=== PATIENT | female | born 1930 | race Caucasian/White ===

== ENCOUNTER 2019-01-08 09:04 | Emergency (ER) | payer MEDICARE, BC ==
[~2019-01-08] VITALS: Ht 167.6 cm; Wt 68.0 kg
--- NOTE | 2019-01-08 09:14 | ED General ---
General Chief Complaint: Altered Mental Status Stated Complaint: SYNCOPAL EPISODE History of Present Illness Date Seen by Provider: Jan 08, 2019 Time Seen by Provider: 09:14 Initial Comments Patient presenting to the emergency department for evaluation of sudden onset altered mental status with confusion and difficulty speaking. She is at an independent living facility and was seen normal breakfast interacting speaking normally. Patient then went back to her room and hadn't several large bowel movements and she tried standing up and felt confused and could not get up so she pressed her emergency call button. The aides saw her slumped over sitting on the toilet and she was very glassy eyed and was not interacting so EMS was called. She was last seen normal at 8 AM at the breakfast table. Patient on arrival is quite confused and slow speech but is still able to respond. She was sent to CT emergently given she is technically in the TPA window for stroke. After getting back from the CT scanner patient was back at her baseline speaking normally and had an NIH stroke scale equal to 0. I asked the nurse Shanna whether she was back to her baseline and she said yes she is 100% back to her baseline. Patient said she felt fine and did not want me to call her DURABLE POWER OF REMOTE SENSING ADVISOR who is her daughter Maddy but I told her that we have to and she started crying. She says she does not want to bother her daughter. I told her that it is necessary. Allergies and Home Medications Home Medications Amiodarone HCl 200 Mg Tablet, 100 MG PO DAILY, (Reported) Aspirin 81 Mg Tab.chew, 81 MG PO DAILY, (Reported) Carvedilol 3.125 Mg Tablet, BID, (Reported) Cephalexin 500 Mg Capsule, 500 MG PO BID Prescribed by: MARTHA BAKER on 01/08/19 1043 Furosemide 20 Mg Tablet, 20 MG PO DAILY, (Reported) Patient Home Medication List Home Medication List Reviewed: Yes Review of Systems Review of Systems Constitutional: no symptoms reported EENTM: no symptoms reported Respiratory: no symptoms reported Cardiovascular: no symptoms reported Gastrointestinal: no symptoms reported Genitourinary: no symptoms reported Musculoskeletal: no symptoms reported Skin: no symptoms reported Psychiatric/Neurological: Other All Other Systems Reviewed Negative Unless Noted: Yes Physical Exam Vital Signs Vital Signs - First Documented 01/08/19 09:08 Temp 95.5 Pulse 87 Resp 16 B/P (MAP) 161/98 (119) Pulse Ox 97 O2 Delivery Room Air Capillary Refill : Height, Weight, BMI Height: '" Weight: lbs. oz. kg; BMI Method: General Appearance: No Apparent Distress, Anxious Eyes: Bilateral Eye Normal Inspection HEENT: PERRL/EOMI Neck: Full Range of Motion Respiratory: Lungs Clear Cardiovascular: No Edema, Normal Peripheral Pulses, Irregularly Irregular Back: Normal Inspection Extremity: Normal Capillary Refill Neurologic/Psychiatric: Alert, Oriented x3, No Motor/Sensory Deficits, utility operator yarn II- XII Norm as Tested Skin: Normal Color, Warm/Dry Progress/Results/Core Measures Suspected Sepsis SIRS Temperature: Pulse: Respiratory Rate: Laboratory Tests 01/08/19 09:15: White Blood Count 7.4 Blood Pressure / Mean: Laboratory Tests 01/08/19 09:15: Creatinine 1.28, INR Comment 0.9, Platelet Count 163, Total Bilirubin 0.8 Results/Orders Lab Results Laboratory Tests Test 01/08/19 09:15 01/08/19 09:50 01/08/19 09:58 Range/Units White Blood Count 7.4 4.3-11.0 10^3/uL Red Blood Count 4.58 4.35-5.85 10^6/uL Hemoglobin 14.7 11.5-16.0 G/DL Hematocrit 43 35-52 % Mean Corpuscular Volume 94 80-99 FL Mean Corpuscular Hemoglobin 32 25-34 PG Mean Corpuscular Hemoglobin Concent 34 32-36 G/DL Red Cell Distribution Width 13.2 10.0-14.5 % Platelet Count 163 130-400 10^3/uL Mean Platelet Volume 11.0 H 7.4-10.4 FL Neutrophils (%) (Auto) 67 42-75 % Lymphocytes (%) (Auto) 18 12-44 % Monocytes (%) (Auto) 10 0-12 % Eosinophils (%) (Auto) 4 0-10 % Basophils (%) (Auto) 1 0-10 % Neutrophils # (Auto) 5.0 1.8-7.8 X 10^3 Lymphocytes # (Auto) 1.3 1.0-4.0 X 10^3 Monocytes # (Auto) 0.7 0.0-1.0 X 10^3 Eosinophils # (Auto) 0.3 0.0-0.3 10^3/uL Basophils # (Auto) 0.1 0.0-0.1 10^3/uL Prothrombin Time 12.8 12.2-14.7 SEC INR Comment 0.9 0.8-1.4 Activated Partial Thromboplast Time 23 L 24-35 SEC Sodium Level 127 L 135-145 MMOL/L Potassium Level 4.6 3.6-5.0 MMOL/L Chloride Level 88 L 98-107 MMOL/L Carbon Dioxide Level 22 21-32 MMOL/L Anion Gap 17 H 5-14 MMOL/L Blood Urea Nitrogen 25 H 7-18 MG/DL Creatinine 1.28 0.60-1.30 MG/DL Estimat Glomerular Filtration Rate 39 BUN/Creatinine Ratio 20 Glucose Level 117 H 70-105 MG/DL Calcium Level 10.0 8.5-10.1 MG/DL Corrected Calcium 9.6 8.5-10.1 MG/DL Magnesium Level 2.0 1.8-2.4 MG/DL Total Bilirubin 0.8 0.1-1.0 MG/DL Aspartate Amino Transf (AST/SGOT) 25 5-34 U/L Alanine Aminotransferase (ALT/SGPT) 16 0-55 U/L Alkaline Phosphatase 95 40-136 U/L Troponin I < 0.30 <0.30 NG/ML Pro-B-Type Natriuretic Peptide 1390.0 H <75.0 PG/ML Total Protein 7.3 6.4-8.2 GM/DL Albumin 4.5 3.2-4.5 GM/DL Lipase 39 8-78 U/L Urine Color YELLOW Urine Clarity CLEAR Urine pH 7.0 5-9 Urine Specific [place] 1.010 L 1.016-1.022 Urine Protein NEGATIVE NEGATIVE Urine Glucose (UA) NEGATIVE NEGATIVE Urine Ketones NEGATIVE NEGATIVE Urine Nitrite NEGATIVE NEGATIVE Urine Bilirubin NEGATIVE NEGATIVE Urine Urobilinogen 0.2 NORMAL MG/DL Urine Leukocyte Esterase 1+ H NEGATIVE Urine RBC (Auto) NEGATIVE NEGATIVE Urine RBC NONE /HPF Urine WBC 25-50 H /HPF Urine Crystals NONE /LPF Urine Bacteria MODERATE H /HPF Urine Casts NONE /LPF Urine Mucus NEGATIVE /LPF Urine Culture Indicated YES Glucometer 109 70-110 MG/DL My Orders Orders - MARTHA BAKER DO Ct Head Wo (01/08/19 09:13) Cbc With Automated Diff (01/08/19 09:19) Comprehensive Metabolic Panel (01/08/19 09:19) Lipase (01/08/19 09:19) Magnesium (01/08/19 09:19) Partial Thromboplastin Time (01/08/19:19) Probnp Fs (01/08/19 09:19) Protime With Inr (01/08/19 09:19) Troponin I (01/08/19 09:19) Ua Culture If Indicated (01/08/19 09:19) Chest 1 View Ap/Pa Only (01/08/19 09:19) Ekg Tracing (01/08/19 09:19) Urine Culture (01/08/19 09:50) Vital Signs/I&O 01/08/19 09:08 Temp 95.5 Pulse 87 Resp 16 B/P (MAP) 161/98 (119) Pulse Ox 97 O2 Delivery Room Air Capillary Refill : Progress Note : Progress Note Most likely patient suffered a vasovagal episode as she was sitting on the toilet however CVA is a consideration given her history of atrial fibrillation and she is only on aspirin. She is paced at this time. I told patient that she should be transferred to another facility where she could have a full stroke/TIA workup. Patient refused. I had a 30 minute combined conversation with patient, Maddy who is DPC[facility]A, and RN Shanna from [facility]. Eventually decision was made that wanted to disrespect the patient's wishes on going back [place] [facility] so she would be discharged. Shanna and Maddy were under the assumption that I could order an outpatient MRI and echocardiogram and that they could just take in order for me and have it done anytime they wanted at [place]. I told them that that is not helping works but I told him I was willing to call Dr. bolanos who is her primary care doctor and Dr. Bolanos said he could try and set up an outpatient MRI locally and that she could follow with her fiberglass boat assembly supervisor Dr. Howard and he could order the echocardiogram and carotid Dopplers. I did discuss with him whether to transition her from aspirin to eliquis or xarelto. Given her diagnosis is uncertain at this time and it could've just been a vasovagal episode I am not going to transition her blood thinners at this time but if she had the appropriate tests or had worsening symptoms then the discussion could be made with patient regarding the risks and benefits of further anticoagulation. Patient does have a mild UTI so I will put her on a five-day course of Keflex. Patient will be discharged in stable condition told to follow up with her PCP and fiberglass boat assembly supervisor and come back to the ED sooner with any new worsening symptoms. Patient, Maddy and Shanna are all on board with the increased risk of discharging her with an incomplete workup and verbalized understanding of this risks including having a debilitating stroke or . Patient discharged in stable condition. Departure Impression Primary Impression: Atrial fibrillation Additional Impressions: UTI (urinary tract infection) Syncope and collapse Disposition: 01 HOME, SELF-CARE Condition: Stable Departure-Patient Inst. Scripts Cephalexin (Keflex) 500 Mg Capsule 500 MG PO BID for 5 Days, CAP Prov: MARTHA BAKER DO 01/08/19 MARTHA BAKER DO Jan 08, 2019 09:14
[2019-01-08 09:28] LABS: BASOPHILS # (AUTO) 0.1 10^3/uL (0.0-0.1); BASOPHILS % (AUTO) 1 % (0-10); EOSINOPHILS # (AUTO) 0.3 10^3/uL (0.0-0.3); EOSINOPHILS % (AUTO) 4 % (0-10); HEMATOCRIT 43 % (35-52); HEMOGLOBIN 14.7 G/DL (11.5-16.0); LYMPHOCYTES # (AUTO) 1.3 X 10^3 (1.0-4.0); LYMPHOCYTES % (AUTO) 18 % (12-44); MEAN CORPUSCULAR HEMOGLOBIN 32 PG (25-34); MEAN CORPUSCULAR HGB CONC 34 G/DL (32-36); MEAN CORPUSCULAR VOLUME 94 FL (80-99); MONOCYTES # (AUTO) 0.7 X 10^3 (0.0-1.0); MONOCYTES % (AUTO) 10 % (0-12); NEUTROPHILS % (AUTO) 67 % (42-75); PLATELET COUNT 163 10^3/uL (130-400); RED CELL DISTRIBUTION WIDTH 13.2 % (10.0-14.5); WHITE BLOOD COUNT 7.4 10^3/uL (4.3-11.0)
--- NOTE | 2019-01-08 09:34 | Diagnostic Imaging Report ---
PROCEDURE: CT head without contrast. TECHNIQUE: Multiple contiguous axial images were obtained through the brain without the use of intravenous contrast. Auto Exposure Controls were utilized during the CT exam to meet ALARA standards for radiation dose reduction. INDICATION: Altered mental status, syncope. FINDINGS: Study is limited by motion. Ventricles and sulci are prominent with moderate amount of low density within the deep white matter of both cerebral hemispheres. No hemorrhage is identified. There is no abnormal mass effect or shift of midline structures. Calvarium is intact and visualized paranasal sinuses are clear. There is atherosclerotic calcification within distal internal carotid and vertebral arteries. IMPRESSION: Involutional findings in the brain. No definite CT evidence of acute abnormality is identified. MRI has greater sensitivity for infarction in the acute setting. Dictated by: Dictated on workstation # [id number]
[2019-01-08 09:39] LABS: INR 0.9 (0.8-1.4); PROTHROMBIN TIME PATIENT 12.8 SEC (12.2-14.7)
--- NOTE | 2019-01-08 09:52 | Diagnostic Imaging Report ---
Clinical indication: Patient with altered mental status. Portable chest x-ray upright AP view. Comparison: None. Findings: There is a slightly lobulated area suspected to be related to the distal descending thoracic aorta. There is mild cardiomegaly with no significant pulmonary vascular congestion. Cardiac pacemaker is seen overlying the chest with 2 these projecting over the heart appears intact. Lungs are clear. There is no pleural effusion or pneumothorax. There is levoscoliosis of the lumbar spine. There are degenerative spurs involving the thoracolumbar spine. There is reversed right total shoulder arthroplasty noted. Impression: 1: There is mild cardiomegaly with no significant pulmonary vascular congestion. 2: Lobulated contour in the region expected to represent the distal descending thoracic aorta. Aneurysmal dilation versus tortuosity may be considered. Comparison to prior chest CT scans would better evaluate. If no prior CT imaging is available, then nonemergent CT angiogram of the chest would help better evaluate. If patient is having acute chest pain, then an emergent CT angiogram would better evaluate. 3: Otherwise, there is no radiographic evidence of acute cardiopulmonary process. Dictated by: Dictated on workstation # [id number]
[2019-01-08 09:57] LABS: ALANINE AMINOTRANSFERASE 16 U/L (0-55); ALKALINE PHOSPHATASE 95 U/L (40-136); BILIRUBIN,TOTAL 0.8 MG/DL (0.1-1.0); BUN/CREATININE RATIO 20; CARBON DIOXIDE 22 MMOL/L (21-32); CHLORIDE 88 MMOL/L (98-107); CREATININE SERUM 1.28 MG/DL (0.60-1.30); GFR ESTIMATED 39; GLUCOSE 117 MG/DL (70-105); POTASSIUM 4.6 MMOL/L (3.6-5.0); SODIUM 127 MMOL/L (135-145)
[2019-01-08 09:58] LABS: ALBUMIN 4.5 GM/DL (3.2-4.5); LIPASE 39 U/L (8-78); TOTAL PROTEIN 7.3 GM/DL (6.4-8.2)
[2019-01-08] MEDS ORDERED: ZOLP5TAB7 (10:02)
[2019-01-08] MEDS ORDERED: SPIR25TA5 (10:02)
[2019-01-08] MEDS ORDERED: CARV3.122 (10:02)
[2019-01-08] MEDS ORDERED: OMEP20CA12 (10:02)
[2019-01-08] MEDS ORDERED: AMIO200T4 PO (10:02)
[2019-01-08] MEDS ORDERED: LEVO88TA54 (10:02)
[2019-01-08 10:03] LABS: BACTERIA,URINE MODERATE /HPF; BILIRUBIN,URINE NEGATIVE (NEGATIVE); CLARITY,URINE CLEAR; COLOR,URINE YELLOW; GLUCOSE, URINE (UA) NEGATIVE (NEGATIVE); KETONES,URINE NEGATIVE (NEGATIVE); LEUKOCYTE ESTERASE ,URINE 1+ (NEGATIVE); NITRITE,URINE NEGATIVE (NEGATIVE); PROTEIN,URINE NEGATIVE (NEGATIVE); UROBILINOGEN,URINE 0.2 MG/DL (NORMAL); WBC,URINE 25-50 /HPF
[2019-01-08] MEDS ORDERED: FURO20TA4 PO (10:03)
[2019-01-08] MEDS ORDERED: ASPI-999 PO (10:07)
[2019-01-08] MEDS ORDERED: CEPH-507 PO (10:43)
--- OUTSIDE RECORDS SUMMARY | 2019-01-08 10:43 | XMS REPORT ---
Author Author [facility] Address [address] [place] [address] Care Team Providers Care Gynecological Assistant Name Role Phone SELFJHON Unavailable PROBLEMS Type Condition ICD9-CM Code [id number] Code Onset Dates Condition Status SNOMED Code Problem Non-rheumatic tricuspid valve insufficiency I36.1 Jul, Active 789026900 Problem Systolic congestive heart failure, NYHA class 2 I50.20 28 Feb, 2015 Active 979378988 Problem Permanent atrial fibrillation I48.2 Jul, Active 814282652 Problem Non-rheumatic mitral regurgitation I34.0 Jul, Active 877594341 Problem Generalized weakness R53.1 Nov, Active 04788749 Problem 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 October, Active [id number] Problem TIA (transient ischemic attack) G45.9 Jul, Active 921607015 Problem Insomnia G47.00 Jan, Active 374266684 Problem CKD (chronic kidney disease) stage 3, GFR 30-59 ml/min N18.3 Nov, Active 486596267 Problem Slow transit constipation K59.01 Active 63309925 Problem Gastritis and duodenitis K29.90 Jun, Active 268778038 Problem Pacemaker Z95.0 Jul, Active 605955886 Problem Essential hypertension I10 October, Active 39829872 Problem Hyponatremia E87.1 Nov, Active 78822275 Problem Acquired hypothyroidism E03.9 Apr, Active 180317906 ALLERGIES No Information ENCOUNTERS Encounter Location Date Diagnosis [address] [address] Dec, [address] [address] Aug, Acquired hypothyroidism E03.9 and Essential hypertension I10 [address] [address] Aug, Essential hypertension I10 ; CKD (chronic kidney disease) stage 3, GFR 30- 59 ml/min N18.3 ; Slow transit constipation K59.01 and Acquired hypothyroidism E03.[address] [address] Aug, [address] [address] Aug, [facility] [id number] [place] [phone] May, [facility] [address] [place] [address] May, [facility] [id number] [place] [phone] May, [facility] [id number] [place] [phone] May, [facility] [id number] [place] [phone] Apr, [facility] [id number] [place] [phone] Mar, [facility] [id number] [address] October, [facility] [address], [place] [address] October, IMMUNIZATIONS No Known Immunizations SOCIAL HISTORY Never Assessed REASON FOR VISIT Medication refill request PLAN OF CARE VITAL SIGNS MEDICATIONS Medication Instructions Dosage Frequency Start Date End Date Duration Status Cozaar 50 MG Orally Once a day 1 tablet 24h Aug, 90 days Active RESULTS No Results PROCEDURES No Known procedures INSTRUCTIONS MEDICATIONS ADMINISTERED No Known Medications MEDICAL (GENERAL) HISTORY Type Description Date Medical History Insomnia Medical History Acquired hypothyroidism Medical History Hyponatremia Medical History Essential hypertension Medical History Pacemaker Medical History TIA (transient ischemic attack) Medical History Chronic combined systolic and diastolic congestive heart failure Medical History Generalized weakness Medical History CKD (chronic kidney disease) stage 3, GFR 30-59 ml/min Medical History Permanent atrial fibrillation Medical History Non-rheumatic mitral regurgitation Medical History Non-rheumatic tricuspid valve insufficiency Medical History Systolic congestive heart failure, NYHA class 2 Medical History Gastritis and duodenitis Surgical History cardiac pacemaker Surgical History hysterectomy Surgical History cataract removal Surgical History right knee replacement Surgical History shoulder replacement Surgical History cholecystectomy Surgical History appendectomy Surgical History ankle surgery
[2019-01-08 10:51] VITALS: BP 112/73
== END 2019-01-08 10:51 | disposition home or self-care (01) ==
LOC: ER FS 09:06
DX: N39.0 Urinary tract infection, site not specified (principal); I48.91 Unspecified atrial fibrillation; R55 Syncope and collapse; Z79.82 Long term (current) use of aspirin
CPT/HCPCS: 36415; 51701; 70450; 71045; 80053; 81000; 82962; 83690; 83735; 83880; 84484; 85025; 85610; 85730; 87077; 87088; 87186; 93005

== ENCOUNTER → 2020-01-04 | Outpatient (CLI) | payer MEDICARE ==
[~2020-01-04] MED LIST: AMIO200T4 PO; ASPI-999 PO; CARV3.122; CEPH-507 PO; FURO20TA4 PO; LEVO88TA54; OMEP20CA18; SPIR25TA5; ZOLP5TAB7
--- NOTE | 2020-01-04 09:45 | Diagnostic Imaging Report ---
INDICATION: Atrial fibrillation, pacemaker. COMPARISON: 01/08/2019 FINDINGS: Frontal and lateral views of the chest demonstrate stable cardiac enlargement. The lungs are clear. There is no pneumothorax, effusion or infiltrate. Atherosclerosis is seen throughout the thoracic aorta. Pacemaker stable. Osseous structures are unchanged. IMPRESSION: Stable cardiac enlargement without pulmonary edema or acute infiltrate. Dictated by: Dictated on workstation # [id number]
== END ==
LOC: RAD FS 09:10
PROVIDERS: ATTEND Nurse Practitioner Family
DX: I48.91 Unspecified atrial fibrillation (principal); I51.7 Cardiomegaly; Z95.0 Presence of cardiac pacemaker; Z79.899 Other long term (current) drug therapy
CPT/HCPCS: 71046

== ENCOUNTER 2021-01-10 09:08 | Emergency (ER) | payer MEDICARE ==
[~2021-01-10] VITALS: Ht 152 cm; Wt 75.0 kg
[~2021-01-10 09:08] MED LIST changes: -AMIO200T4 PO; +AMIO200T6 PO
[2021-01-10 09:09] VITALS: BP 170/75
--- NOTE | 2021-01-10 09:16 | ED General ---
General Stated Complaint: LEFT HIP PAIN Source of Information: Patient Exam Limitations: No Limitations History of Present Illness Date Seen by Provider: Jan 10, 2021 Time Seen by Provider: 09:16 Initial Comments 89-year-old female presents with left low back pain for the past couple weeks. She was admitted to hospital at onset of this for getting a pacemaker. She states she was made to walk more than she is used to before she was able to go home. The pain has been present since then, worse with movement and tender to touch. Denies any numbness weakness or loss of bowel bladder control. Allergies and Home Medications Home Medications Amiodarone HCl 200 Mg Tablet, 100 MG PO DAILY, (Reported) Aspirin 81 Mg Tab.chew, 81 MG PO DAILY, (Reported) Carvedilol 3.125 Mg Tablet, BID, (Reported) Cephalexin 500 Mg Capsule, 500 MG PO BID Prescribed by: MARTHA BAKER on 01/08/19 1043 Furosemide 20 Mg Tablet, 20 MG PO DAILY, (Reported) Hydrocodone/Acetaminophen 1 Each Tablet, 1 EACH PO Q4H Prescribed by: RILEY COTA on 01/10/21 0959 Patient Home Medication List Home Medication List Reviewed: Yes Review of Systems Review of Systems Constitutional: No fever, No malaise, No weakness Respiratory: no symptoms reported Cardiovascular: no symptoms reported Gastrointestinal: no symptoms reported; No abdominal pain, No constipation, No diarrhea, No loss of appetite, No nausea, No vomiting Genitourinary: No dysuria, No frequency, No hematuria Musculoskeletal: back pain; No joint pain; muscle pain, muscle stiffness; No neck pain Skin: No change in color, No rash Psychiatric/Neurological: Denies Numbness, Denies Paresthesia, Denies Tingling, Denies Tremors, Denies Weakness Past [id number]-[id number] Hx Patient Social History Tobacco Use?: No Seasonal Allergies Seasonal Allergies: No Past Medical History Surgeries: Yes (Left ankle, cataract bilat, ) Gallbladder, Hysterectomy, Pacemaker Respiratory: No Cardiac: Yes (CHF) Atrial Fibrillation Neurological: No Genitourinary: No Gastrointestinal: Yes Ulcer, Gall Bladder Disease Musculoskeletal: No Arthritis Endocrine: Yes Hypothyroidsim HEENT: Yes Cataract Loss of Vision: Denies Hearing Impairment: Hard of Hearing Cancer: No Psychosocial: No Integumentary: No Blood Disorders: No Physical Exam Vital Signs Vital Signs - First Documented 01/10/21 09:09 Temp 36.3 Pulse 102 Resp 18 B/P (MAP) 170/75 (106) Pulse Ox 96 O2 Delivery Room Air Capillary Refill : Height, Weight, BMI Height: 5'6.00" Weight: 150lbs. oz. 68.166249xy; BMI Method:Estimated General Appearance: No Apparent Distress, WD/WN Gastrointestinal: Normal Bowel Sounds, Non Tender, Soft Back: Normal Inspection, No CVA Tenderness, No Vertebral Tenderness, Decreased Range of Motion, Muscle Spasm (left lower lumbar paraspinal ms) Extremity: Normal Capillary Refill, Normal Inspection, Non Tender, No Calf Tenderness, No Pedal Edema Neurologic/Psychiatric: Alert, No Motor/Sensory Deficits, Normal Mood/Affect Progress/Results/Core Measures Suspected Sepsis SIRS Temperature: Pulse: Respiratory Rate: Blood Pressure / Mean: Results/Orders Vital Signs/I&O 01/10/21 09:09 Temp 36.3 Pulse 102 Resp 18 B/P (MAP) 170/75 (106) Pulse Ox 96 O2 Delivery Room Air Capillary Refill : Departure Impression Primary Impression: Low back strain Qualified Codes: S39.012A - Strain of muscle, fascia and tendon of lower back, initial encounter Disposition: 01 HOME, SELF-CARE Condition: Stable Departure-Patient Inst. Decision time for Depature: 09:26 Referrals: JHON BOLANOS MD (PCP/Family) Primary Care Physician Patient Instructions: Muscle and Bone Pain (DC) Add. Discharge Instructions: Apply heat daily, stretch gently and keep moving Follow up with Dr Bolanos in 1 week Scripts Hydrocodone/Acetaminophen (Hydrocodone-Acetamin 5-325 mg) 1 Each Tablet 1 EACH PO Q4H for Abdominal Pain, #10 TAB Prov: RILEY COTA DO 01/10/21 RILEY COTA DO Jan 10, 2021 09:16
[2021-01-10] MEDS ORDERED: ACHD5005 PO (09:27)
== END 2021-01-10 10:20 | disposition home or self-care (01) ==
LOC: EDUNIT# 09:08 → ER FS 09:09
DX: S39.012A Strain of muscle, fascia and tendon of lower back, initial encounter (principal); I50.9 Heart failure, unspecified; I48.91 Unspecified atrial fibrillation; Z79.82 Long term (current) use of aspirin; Z79.899 Other long term (current) drug therapy; X58.XXXA Exposure to other specified factors, initial encounter